=== PATIENT | female | born 1945 | race Caucasian/White ===

== ENCOUNTER 2021-08-19 06:40 | Outpatient (CLI) | payer MEDICARE, BC, SELFPAY ==
--- NOTE | ~2021-08-19 | MR_ITS ---
EXAMINATION: MR knee RT wo con DATE: 08/19/2021 07:45 INDICATION: Right knee pain TECHNIQUE: Magnetic resonance imaging (MRI) of the right knee was performed without intravenous contr ast. Sequences included coronal PD-weighted FSE, coronal PD-weighted FS FSE, sagittal T2-weighted FS E, sagittal PD-weighted FS FSE and axial PD weighted fat saturated FSE. COMPARISON: None. FINDINGS: Medial compartment: Complex tear at the posterior horn of the medial meniscus with both radial tear plane near the cabin worker ior root and a longitudinal horizontal tear plane extending to the superior articular surface near th e free edge of the more medial posterior horn. There is partial thickness chondral ulceration and jaye per fissuring along the anterior to central weightbearing medial femoral condyle with scattered artic ular cortical irregularity and extensive edema-like subarticular cysts marrow signal changes at the a nterior weightbearing medial femoral condyle. Additional partial thickness chondral ulceration with c hondral surface regularity but without degenerative subchondral changes at the medial tibial plateau. Lateral compartment: Lateral meniscus is normal. Partial-thickness chondral fissure at the posterior weightbearing lateral femoral condyle. Remaining articular cartilage is normal. Patellofemoral compartment: Deep chondral ulceration and fissuring with scattered underlying cortical irregularity and subarticul ar cystlike changes throughout the lateral patellar facet at the cephalad aspect of the apical ridge and supralateral aspect of the medial facet. Trochlear cartilage appears relatively preserved Ligaments and tendons: Anterior and posterior cruciate ligaments are normal. The medial collateral ligament and fibular navya ateral ligament complex are normal. The extensor mechanism is normal. The visualized medial and later al hamstring tendons as well as the iliotibial band are normal. Fluid: Physiologic amount of fluid in the joint space. No loose osteochondral bodies identified. Osseous/other: No fracture or pathologic marrow replacing process. IMPRESSION: 1. Complex medial meniscal tear. 2. 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 Reviewed, dictated and finalized at location A. IMPRESSION: 1. Complex medial meniscal tear. 2. 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
== END 2021-08-19 06:41 | disposition home or self-care (01) ==
LOC: ANHIMG 06:55
PROVIDERS: PCP Pediatrics
DX: S83.231A Complex tear of medial meniscus, current injury, right knee, initial encounter (principal); X58.XXXA Exposure to other specified factors, initial encounter; M17.11 Unilateral primary osteoarthritis, right knee
CPT/HCPCS: 73721